=== PATIENT | male | born 1955 | race Caucasian/White ===

== ENCOUNTER 2017-11-08 14:42 | Observation (INO) | payer BC, OTHER ==
[2017-11-08 15:32] LABS: ADD MAN DIFF? NO
[2017-11-08 15:36] LABS: WHITE BLOOD COUNT 7.1 10^3/ul (4.8-10.8)
[2017-11-08 15:36] LABS: BASOPHILS % 0.3 % (0.0-2.0); EOSINOPHILS # 0.3 10^3/ul (0.0-0.5); EOSINOPHILS % 4.8 % (0.0-7.0); HEMATOCRIT 41.6 % (42.0-52.0); HEMOGLOBIN 14.3 g/dl (14.0-18.0); LYMPHOCYTES # 1.4 10^3/ul (0.8-2.9); LYMPHOCYTES % 19.2 % (15.0-51.0); MEAN CORPUSCULAR HEMOGLOBIN 30.2 pg (29.0-33.0); MEAN CORPUSCULAR HGB CONC 34.4 g/dl (32.0-37.0); MEAN CORPUSCULAR VOLUME 87.9 fl (82.0-101.0); MEAN PLATELET VOLUME 10.4 fl (7.4-10.4); MONOCYTE # 0.4 10^3/ul (0.3-0.9); MONOCYTES % 5.1 % (0.0-11.0); NEUTROPHILS % 70.3 % (39.0-77.0); PLATELET COUNT 227 10^3/UL (140-415); RED BLOOD COUNT 4.73 10^6/ul (4.70-6.10); RED CELL DISTRIBUTION WIDTH 13.3 % (11.5-14.5)
[2017-11-08 15:39] LABS: INR 0.93; PROTIME 12.6 Sec (11.9-14.9)
[2017-11-08 15:40] LABS: PARTIAL THROMBOPLASTIN TIME 32.9 Sec (25.0-35.0)
[2017-11-08 15:43] LABS: ALANINE AMINOTRANSFERASE 22 IU/L (13-69); ALBUMIN 4.5 g/dl (3.3-4.9); ALBUMIN/GLOBULIN RATIO 1.36; ALKALINE PHOSPHATASE 51 IU/L (42-121); ANION GAP 21 (8-16); ASPARTATE AMINO TRANSFERASE 15 IU/L (15-46); BILIRUBIN,INDIRECT 0.4 mg/dl (0-1.1); BILIRUBIN,TOTAL 0.4 mg/dl (0.2-1.3); BLOOD UREA NITROGEN 17 mg/dl (7-20); CALCIUM 9.7 mg/dl (8.4-10.2); CARBON DIOXIDE 27 mmol/L (21-31); CHLORIDE 102 mmol/L (97-110); CREATININE 0.58 mg/dl (0.61-1.24); GLUCOSE 228 mg/dl (70-220); POTASSIUM 4.2 mmol/L (3.5-5.1); SODIUM 146 mmol/L (135-144); TOTAL PROTEIN 7.8 g/dl (6.1-8.1)
[2017-11-08] MEDS: morphine 4 MG/ML VIAL IV (15:46)
[2017-11-08] MEDS: NITROGLYCERIN 2% 1 GM OINT PKT TD (15:47)
[2017-11-08] MEDS: ONDANSETRON 4 MG INJ IV ×2 (15:47→17:37)
[2017-11-08] MEDS: ASPIRIN 325 MG TAB PO (15:47)
[2017-11-08 15:55] LABS: TROPONIN-I < 0.012 ng/ml (0.00-0.12)
[2017-11-08] MEDS: HYDROmorphONE 0.5 MG/0.5 ML SYG IV (17:37)
[2017-11-08] MEDS ORDERED: ONDANSETRON 4 MG INJ IV ×2 (18:00→18:30)
[2017-11-08] MEDS ORDERED: ACETAMINOPHEN 325 MG TAB PO ×2 (18:00→18:30)
[2017-11-08] MEDS ORDERED: MAGNESIUM HYDROXIDE 30ML CUP PO (18:30)
[2017-11-08] MEDS ORDERED: NACL 0.9% 3 ML SYG IV (18:30)
[2017-11-08] MEDS ORDERED: NITROGLYCERIN (SL) 0.4 MG TAB SL (18:30)
[2017-11-08] MEDS ORDERED: LORAZEPAM 2 MG INJ IV (18:30)
[2017-11-08] MEDS ORDERED: DOCUSATE SODIUM 100 MG CAP PO (18:30)
[2017-11-08] MEDS ORDERED: GLUCOSE GEL 15 GRAM TUBE PO ×2 (19:00)
[2017-11-08] MEDS ORDERED: DEXTROSE 50% 50 ML SYRINGE IV ×2 (19:00)
[2017-11-08] MEDS ORDERED: GLUCOSE GEL 15 GRAM TUBE BUCCAL (19:00)
[2017-11-08] MEDS ORDERED: GLUCAGON 1 MG INJ IM (19:00)
[2017-11-08] MEDS: SOD CHLORIDE 0.9% 100 ML ×2 (19:43→19:58)
[2017-11-08] MEDS: IOHEXOL 300MG/ML 150 ML BTL ×3 (19:44→19:57)
[2017-11-08 20:19] LABS: CREATINE KINASE 56 IU/L (23-200)
[2017-11-08 20:31] LABS: CK INDEX 1.3
[2017-11-08 20:32] LABS: CK-MB 0.74 ng/ml (0.0-2.4); TROPONIN-I < 0.012 ng/ml (0.00-0.12)
[2017-11-08 20:49] LABS: CHOLESTEROL 192 mg/dl (100-200)
[2017-11-08 20:49] LABS: HDL CHOLESTEROL 38 mg/dl (30-78); LDL CHOLESTEROL,CALCULATED 135 mg/dl; TRIGLYCERIDES 97 mg/dl (0-149)
[2017-11-08 21:21] LABS: THYROID STIMULATING HORMONE 0.494 MIU/L (0.465-4.680)
[2017-11-08] MEDS: ATORVASTATIN 20 MG TAB PO (23:35)
[2017-11-08] MEDS: RANITIDINE 150 MG TAB PO (23:40)
[2017-11-08] MEDS: INSULIN ASPART [NOVOLOG] 3 ML PEN SC (23:40)
[2017-11-08] MEDS: morphine 2 MG INJ IV (23:41)
[2017-11-09 01:01] LABS: CREATINE KINASE 50 IU/L (23-200)
[2017-11-09 01:14] LABS: CK INDEX 1.7; CK-MB 0.84 ng/ml (0.0-2.4); TROPONIN-I < 0.012 ng/ml (0.00-0.12)
[2017-11-09 05:53] LABS: ADD MAN DIFF? NO
[2017-11-09 05:56] LABS: BASOPHILS % 0.2 % (0.0-2.0); EOSINOPHILS # 0.3 10^3/ul (0.0-0.5); EOSINOPHILS % 5.4 % (0.0-7.0); HEMATOCRIT 37.6 % (42.0-52.0); HEMOGLOBIN 12.9 g/dl (14.0-18.0); LYMPHOCYTES # 1.4 10^3/ul (0.8-2.9); LYMPHOCYTES % 22.6 % (15.0-51.0); MEAN CORPUSCULAR HEMOGLOBIN 30.6 pg (29.0-33.0); MEAN CORPUSCULAR HGB CONC 34.3 g/dl (32.0-37.0); MEAN CORPUSCULAR VOLUME 89.3 fl (82.0-101.0); MEAN PLATELET VOLUME 10.3 fl (7.4-10.4); MONOCYTE # 0.4 10^3/ul (0.3-0.9); MONOCYTES % 6.2 % (0.0-11.0); NEUTROPHIL # 4.1 10^3/ul (1.6-7.5); NEUTROPHILS % 65.3 % (39.0-77.0); PLATELET COUNT 226 10^3/UL (140-415); RED BLOOD COUNT 4.21 10^6/ul (4.70-6.10); RED CELL DISTRIBUTION WIDTH 13.6 % (11.5-14.5)
[2017-11-09 05:56] LABS: WHITE BLOOD COUNT 6.3 10^3/ul (4.8-10.8)
[2017-11-09] MEDS: PANTOPRAZOLE (EC) 40 MG TAB PO (06:00)
[2017-11-09 06:53] LABS: ANION GAP 16 (8-16); BLOOD UREA NITROGEN 21 mg/dl (7-20); CALCIUM 9.1 mg/dl (8.4-10.2); CARBON DIOXIDE 31 mmol/L (21-31); CHLORIDE 101 mmol/L (97-110); CREATININE 0.64 mg/dl (0.61-1.24); GLUCOSE 88 mg/dl (70-220); MAGNESIUM 1.4 mg/dl (1.7-2.5); PHOSPHORUS 4.2 mg/dl (2.5-4.9); POTASSIUM 4.1 mmol/L (3.5-5.1); SODIUM 144 mmol/L (135-144)
[2017-11-09] MEDS: SOD CHLORIDE 0.9% 1,000 ML IV (06:57)
[2017-11-09 07:19] LABS: HEMOGLOBIN A1C 8.2 % (0-5.9)
[2017-11-09] MEDS: INSULIN ASPART [NOVOLOG] 3 ML PEN SC ×4 (07:35→20:36)
[2017-11-09] MEDS: AMLODIPINE 2.5 MG TAB PO (08:18)
[2017-11-09] MEDS: LISINOPRIL 20 MG TAB PO (08:18)
[2017-11-09] MEDS: CLOPIDOGREL 75 MG TAB PO (09:28)
[2017-11-09] MEDS: MAGNESIUM SULFATE 3 GM in DEXTROSE 5% 100 ML IVPB (11:18)
[2017-11-09] MEDS: HYDROCODONE/APAP (5/325) TAB PO (11:18)
[2017-11-09] MEDS: ATORVASTATIN 40 MG TAB PO (21:56)
[2017-11-09] MEDS: RANITIDINE 150 MG TAB PO (21:56)
[2017-11-10] MEDS: PANTOPRAZOLE (EC) 40 MG TAB PO (05:12)
[2017-11-10 05:19] LABS: ADD MAN DIFF? NO
[2017-11-10 05:22] LABS: WHITE BLOOD COUNT 7.2 10^3/ul (4.8-10.8)
[2017-11-10 05:22] LABS: BASOPHILS % 0.3 % (0.0-2.0); EOSINOPHILS # 0.4 10^3/ul (0.0-0.5); EOSINOPHILS % 5.7 % (0.0-7.0); HEMATOCRIT 36.4 % (42.0-52.0); HEMOGLOBIN 12.5 g/dl (14.0-18.0); LYMPHOCYTES # 1.5 10^3/ul (0.8-2.9); LYMPHOCYTES % 20.2 % (15.0-51.0); MEAN CORPUSCULAR HEMOGLOBIN 30.3 pg (29.0-33.0); MEAN CORPUSCULAR HGB CONC 34.3 g/dl (32.0-37.0); MEAN CORPUSCULAR VOLUME 88.3 fl (82.0-101.0); MEAN PLATELET VOLUME 10.6 fl (7.4-10.4); MONOCYTE # 0.4 10^3/ul (0.3-0.9); MONOCYTES % 5.8 % (0.0-11.0); NEUTROPHIL # 4.9 10^3/ul (1.6-7.5); NEUTROPHILS % 67.7 % (39.0-77.0); PLATELET COUNT 217 10^3/UL (140-415); RED BLOOD COUNT 4.12 10^6/ul (4.70-6.10); RED CELL DISTRIBUTION WIDTH 13.3 % (11.5-14.5)
[2017-11-10 05:45] LABS: ALBUMIN 4.1 g/dl (3.3-4.9); ANION GAP 17 (8-16); BLOOD UREA NITROGEN 15 mg/dl (7-20); CARBON DIOXIDE 28 mmol/L (21-31); CHLORIDE 102 mmol/L (97-110); CREATININE 0.66 mg/dl (0.61-1.24); GLUCOSE 141 mg/dl (70-220); MAGNESIUM 1.9 mg/dl (1.7-2.5); PHOSPHORUS 4.4 mg/dl (2.5-4.9); POTASSIUM 4.3 mmol/L (3.5-5.1); SODIUM 143 mmol/L (135-144)
[2017-11-10] MEDS: INSULIN ASPART [NOVOLOG] 3 ML PEN SC ×2 (07:35→11:45)
[2017-11-10] MEDS: LISINOPRIL 20 MG TAB PO (08:39)
[2017-11-10] MEDS: ASPIRIN (EC) 81 MG TAB PO (08:39)
[2017-11-10] MEDS: CLOPIDOGREL 75 MG TAB PO (12:08)
== END 2017-11-10 13:00 | disposition home or self-care (01) ==
LOC: E/R 14:42 → MS3 17:55
DX: R07.9 Chest pain, unspecified (principal); R10.9 Unspecified abdominal pain; E11.9 Type 2 diabetes mellitus without complications; I10 Essential (primary) hypertension; I25.10 Atherosclerotic heart disease of native coronary artery without angina pectoris; E78.5 Hyperlipidemia, unspecified; E83.42 Hypomagnesemia; M25.511 Pain in right shoulder; M79.601 Pain in right arm; I25.5 Ischemic cardiomyopathy; I73.9 Peripheral vascular disease, unspecified; I69.351 Hemiplegia and hemiparesis following cerebral infarction affecting right dominant side; I25.2 Old myocardial infarction; Z95.5 Presence of coronary angioplasty implant and graft; Z87.891 Personal history of nicotine dependence; Z79.02 Long term (current) use of antithrombotics/antiplatelets; Z79.84 Long term (current) use of oral hypoglycemic drugs
CPT/HCPCS: 36415; 71045; 73030-RT; 74018; 74177; 80053; 80061; 80069; 82550; 82553; 82962; 83036; 83735; 84443; 84484; 85025; 85610; 85730; 93005; 93306; 96374; 96375; 96376; 99285-25

== ENCOUNTER 2018-06-06 22:24 | Inpatient (IN) | payer BC ==
[2018-06-06 22:52] LABS: ADD MAN DIFF? NO
[2018-06-06 22:54] LABS: WHITE BLOOD COUNT 7.1 10^3/ul (4.8-10.8)
[2018-06-06 22:54] LABS: BASOPHILS % 0.4 % (0.0-2.0); EOSINOPHILS # 0.2 10^3/ul (0.0-0.5); EOSINOPHILS % 3.2 % (0.0-7.0); HEMATOCRIT 36.8 % (42.0-52.0); HEMOGLOBIN 12.6 g/dl (14.0-18.0); LYMPHOCYTES # 1.3 10^3/ul (0.8-2.9); MEAN CORPUSCULAR HEMOGLOBIN 30.1 pg (29.0-33.0); MEAN CORPUSCULAR HGB CONC 34.2 g/dl (32.0-37.0); MEAN PLATELET VOLUME 10.3 fl (7.4-10.4); MONOCYTE # 0.4 10^3/ul (0.3-0.9); MONOCYTES % 5.4 % (0.0-11.0); NEUTROPHIL # 5.2 10^3/ul (1.6-7.5); NEUTROPHILS % 72.7 % (39.0-77.0); PLATELET COUNT 211 10^3/UL (140-415); RED BLOOD COUNT 4.18 10^6/ul (4.70-6.10); RED CELL DISTRIBUTION WIDTH 12.9 % (11.5-14.5)
[2018-06-06 23:00] LABS: ANION GAP 11 (5-13); BLOOD UREA NITROGEN 17 mg/dl (7-20); CALCIUM 9.2 mg/dl (8.4-10.2); CARBON DIOXIDE 25 mmol/L (21-31); CHLORIDE 101 mmol/L (97-110); CREATININE 0.56 mg/dl (0.61-1.24); Estimated GFR > 60 mL/min (>60); GLUCOSE 285 mg/dl (70-220); POTASSIUM 4.4 mmol/L (3.5-5.1); SODIUM 137 mmol/L (135-144)
[2018-06-06 23:11] LABS: TROPONIN-I < 0.012 ng/ml (0.000-0.120)
[2018-06-07] MEDS ORDERED: ONDANSETRON 4 MG INJ IV (00:30)
[2018-06-07] MEDS ORDERED: ACETAMINOPHEN 325 MG TAB PO ×2 (00:30→03:00)
[2018-06-07] MEDS ORDERED: morphine 2 MG INJ IV (03:00)
[2018-06-07] MEDS ORDERED: NITROGLYCERIN (SL) 0.4 MG TAB SL (03:00)
[2018-06-07] MEDS ORDERED: GLUCAGON 1 MG INJ IM (03:30)
[2018-06-07] MEDS ORDERED: DEXTROSE 50% 50 ML SYRINGE IV ×2 (03:30)
[2018-06-07] MEDS ORDERED: GLUCOSE GEL 15 GRAM TUBE BUCCAL (03:30)
[2018-06-07] MEDS ORDERED: GLUCOSE GEL 15 GRAM TUBE PO ×2 (03:30)
[2018-06-07 05:34] LABS: ADD MAN DIFF? NO
[2018-06-07 05:39] LABS: BASOPHILS % 0.5 % (0.0-2.0); EOSINOPHILS # 0.3 10^3/ul (0.0-0.5); EOSINOPHILS % 4.3 % (0.0-7.0); HEMOGLOBIN 12.8 g/dl (14.0-18.0); LYMPHOCYTES # 1.5 10^3/ul (0.8-2.9); LYMPHOCYTES % 25.4 % (15.0-51.0); MEAN CORPUSCULAR HEMOGLOBIN 30.3 pg (29.0-33.0); MEAN CORPUSCULAR HGB CONC 34.6 g/dl (32.0-37.0); MEAN CORPUSCULAR VOLUME 87.7 fl (82.0-101.0); MEAN PLATELET VOLUME 10.1 fl (7.4-10.4); MONOCYTE # 0.4 10^3/ul (0.3-0.9); MONOCYTES % 7.6 % (0.0-11.0); NEUTROPHIL # 3.6 10^3/ul (1.6-7.5); PLATELET COUNT 209 10^3/UL (140-415); RED BLOOD COUNT 4.22 10^6/ul (4.70-6.10); RED CELL DISTRIBUTION WIDTH 12.8 % (11.5-14.5)
[2018-06-07 05:39] LABS: WHITE BLOOD COUNT 5.8 10^3/ul (4.8-10.8)
[2018-06-07 05:59] LABS: ALANINE AMINOTRANSFERASE 23 IU/L (13-69); ALBUMIN 3.9 g/dl (3.3-4.9); ALBUMIN/GLOBULIN RATIO 1.34; ALKALINE PHOSPHATASE 45 IU/L (42-121); ANION GAP 10 (5-13); ASPARTATE AMINO TRANSFERASE 15 IU/L (15-46); BILIRUBIN,INDIRECT 0.4 mg/dl (0-1.1); BILIRUBIN,TOTAL 0.4 mg/dl (0.2-1.3); BLOOD UREA NITROGEN 13 mg/dl (7-20); CALCIUM 9.3 mg/dl (8.4-10.2); CARBON DIOXIDE 28 mmol/L (21-31); CHLORIDE 103 mmol/L (97-110); CREATININE 0.53 mg/dl (0.61-1.24); Estimated GFR > 60 mL/min (>60); GLUCOSE 124 mg/dl (70-220); POTASSIUM 3.7 mmol/L (3.5-5.1); SODIUM 141 mmol/L (135-144); TOTAL PROTEIN 6.8 g/dl (6.1-8.1)
[2018-06-07 06:04] LABS: HEMOGLOBIN A1C 9.6 % (0-5.9)
[2018-06-07 06:07] LABS: TROPONIN-I < 0.012 ng/ml (0.000-0.120)
[2018-06-07 06:16] LABS: CREATINE KINASE 61 IU/L (23-200)
[2018-06-07 06:27] LABS: CK INDEX 1.8; CK-MB 1.11 ng/ml (0.0-2.4); TROPONIN-I < 0.012 ng/ml (0.000-0.120)
[2018-06-07] MEDS: glipiZIDE 5 MG TAB PO (07:59)
[2018-06-07] MEDS: metFORMIN 500 MG TAB PO ×2 (08:00→17:16)
[2018-06-07] MEDS: INSULIN ASPART [NOVOLOG] 3 ML PEN SC ×4 (08:00→20:57)
[2018-06-07] MEDS: CLOPIDOGREL 75 MG TAB PO (09:45)
[2018-06-07] MEDS: GABAPENTIN 300 MG CAP PO ×3 (09:45→20:59)
[2018-06-07] MEDS: AMLODIPINE 2.5 MG TAB PO (09:45)
[2018-06-07] MEDS: LISINOPRIL 20 MG TAB PO (09:46)
[2018-06-07] MEDS: ENOXAPARIN 40 MG/0.4 ML SYG SC (09:53)
[2018-06-07] MEDS: SENNA TAB PO ×2 (10:23→20:59)
[2018-06-07 11:06] LABS: CREATINE KINASE 55 IU/L (23-200)
[2018-06-07 11:11] LABS: CK INDEX 1.7; CK-MB 0.95 ng/ml (0.0-2.4); TROPONIN-I < 0.012 ng/ml (0.000-0.120)
[2018-06-07] MEDS: ISOSORBIDE DINITRATE 20 MG TAB PO ×2 (13:00→21:00)
[2018-06-07] MEDS: ATORVASTATIN 40 MG TAB PO (20:59)
[2018-06-07] MEDS: RANITIDINE 150 MG TAB PO (20:59)
[2018-06-07] MEDS ORDERED: GABAPENTIN 300 MG CAP PO (21:00)
[2018-06-07] MEDS ORDERED: RANITIDINE 150 MG TAB PO (21:00)
[2018-06-07] MEDS ORDERED: ATORVASTATIN 40 MG TAB PO (21:00)
[2018-06-08] MEDS: ACCU-CHEK XX (02:46)
[2018-06-08 06:40] LABS: TROPONIN-I < 0.012 ng/ml (0.000-0.120)
[2018-06-08 06:48] LABS: CHOL/HDL RATIO 8.3 RATIO; HDL CHOLESTEROL 26 mg/dl (30-78); LDL CHOLESTEROL,CALCULATED 158 mg/dl; TRIGLYCERIDES 164 mg/dl (0-149)
[2018-06-08 06:48] LABS: CHOLESTEROL 217 mg/dl (100-200)
[2018-06-08] MEDS: INSULIN ASPART [NOVOLOG] 3 ML PEN SC ×3 (08:00→17:38)
[2018-06-08] MEDS: metFORMIN 500 MG TAB PO ×2 (08:00→17:35)
[2018-06-08] MEDS ORDERED: AMLODIPINE 2.5 MG TAB PO (09:00)
[2018-06-08] MEDS: SENNA TAB PO (09:00)
[2018-06-08] MEDS ORDERED: CLOPIDOGREL 75 MG TAB PO (09:00)
[2018-06-08] MEDS ORDERED: LISINOPRIL 20 MG TAB PO (09:00)
[2018-06-08] MEDS: CLOPIDOGREL 75 MG TAB PO (09:11)
[2018-06-08] MEDS: GABAPENTIN 300 MG CAP PO ×2 (09:11→12:50)
[2018-06-08] MEDS: LISINOPRIL 20 MG TAB PO (09:11)
[2018-06-08] MEDS: ISOSORBIDE DINITRATE 20 MG TAB PO ×2 (09:11→12:49)
[2018-06-08] MEDS: AMLODIPINE 2.5 MG TAB PO (09:12)
[2018-06-08] MEDS: ENOXAPARIN 40 MG/0.4 ML SYG SC (09:14)
[2018-06-08] MEDS: REGADENOSON 0.4 MG/5 ML SYG (13:40)
[2018-06-13] MEDS ORDERED: ERGOCALCIFEROL 50,000 UNIT CAP PO (09:00)
== END 2018-06-08 20:40 | disposition left against medical advice (07) | DRG 313 ==
LOC: E/R 22:24 → 6WM 06-07 00:27
DX: R07.9 Chest pain, unspecified (principal); I42.9 Cardiomyopathy, unspecified; I10 Essential (primary) hypertension; I25.2 Old myocardial infarction; D64.9 Anemia, unspecified; E11.9 Type 2 diabetes mellitus without complications; I25.10 Atherosclerotic heart disease of native coronary artery without angina pectoris; E78.5 Hyperlipidemia, unspecified; Z95.5 Presence of coronary angioplasty implant and graft; Z79.84 Long term (current) use of oral hypoglycemic drugs; Z79.02 Long term (current) use of antithrombotics/antiplatelets; Z72.0 Tobacco use
CPT/HCPCS: 36415; 71045; 78452; 80048; 80053; 80061; 82550; 82553; 82962; 83036; 84484; 85025; 93005; 93017; 93306; 99285-25

== ENCOUNTER 2018-07-13 07:22 | Day surgery (SDC) | payer BC ==
[~2018-07-13 07:22] MED LIST: CEFAZOLIN 2 GM/50 ML (PMX) 50 ML IVPB; DEXAMETHASONE 4 MG/ML 1 ML INJ; FENTAnyl 50 MCG/ML VIAL; GLYCOPYRROLATE 0.4 MG INJ; LABETALOL HCL 20MG INJ; LIDOCAINE 100 MG SYRINGE; MIDAZOLAM 1 MG/ML 2 ML INJ; NEOSTIGMINE 3 MG/3 ML SYRINGE; ONDANSETRON 4 MG INJ; PROPOFOL 20 ML; ROCURONIUM 50 MG INJ; SOD CHLORIDE 0.9% 1,000 ML IV
[2018-07-13] MEDS ORDERED: SUCCINYLCHOLINE CHLORIDE 100 MG/5 ML SYG IV (08:12)
[2018-07-13] MEDS ORDERED: BUPIVACAINE 0.25%/EPI (SDV) 10 ML INJ (08:40)
[2018-07-13] MEDS ORDERED: LIDOCAINE 1% (STERILE-PAK) 30 ML INJ (08:40)
[2018-07-13] MEDS ORDERED: FLUMAZENIL 0.5 MG INJ (08:52)
[2018-07-13] MEDS: LIDOCAINE 1% (MPF) 30 ML INJ INJ (09:14)
[2018-07-13] MEDS: BUPIVACAINE 0.25% (MPF) 10 ML 10 ML VIAL INJ ×3 (09:14)
[2018-07-13] MEDS ORDERED: HYDROCODONE/APAP (5/325) TAB PO ×2 (09:30)
[2018-07-13] MEDS ORDERED: IBUPROFEN 600 MG TAB PO (09:30)
[2018-07-13] MEDS: HYDROmorphONE 0.5 MG/0.5 ML SYG IV (10:09)
[2018-07-13] MEDS: FENTAnyl 50 MCG/ML VIAL IV (10:09)
== END 2018-07-13 14:40 | disposition home or self-care (01) ==
LOC: SDS 07:22
DX: L05.91 Pilonidal cyst without abscess (principal); E11.9 Type 2 diabetes mellitus without complications; I11.0 Hypertensive heart disease with heart failure; I50.9 Heart failure, unspecified; I25.10 Atherosclerotic heart disease of native coronary artery without angina pectoris; Z86.73 Personal history of transient ischemic attack (TIA), and cerebral infarction without residual deficits
CPT/HCPCS: 11772; 82962; 88304

== ENCOUNTER 2019-03-10 07:49 | Emergency (ER) | payer BC ==
[2019-03-10 08:30] LABS: ADD MAN DIFF? NO
[2019-03-10 08:32] LABS: BASOPHILS % 0.5 % (0.0-2.0); EOSINOPHILS # 0.3 10^3/ul (0.0-0.5); EOSINOPHILS % 3.9 % (0.0-7.0); HEMATOCRIT 40.9 % (42.0-52.0); HEMOGLOBIN 13.8 g/dl (14.0-18.0); LYMPHOCYTES # 2.3 10^3/ul (0.8-2.9); LYMPHOCYTES % 34.8 % (15.0-51.0); MEAN CORPUSCULAR HEMOGLOBIN 29.6 pg (29.0-33.0); MEAN CORPUSCULAR HGB CONC 33.7 g/dl (32.0-37.0); MEAN CORPUSCULAR VOLUME 87.6 fl (82.0-101.0); MEAN PLATELET VOLUME 10.6 fl (7.4-10.4); MONOCYTE # 0.5 10^3/ul (0.3-0.9); MONOCYTES % 7.1 % (0.0-11.0); NEUTROPHIL # 3.5 10^3/ul (1.6-7.5); NEUTROPHILS % 53.4 % (39.0-77.0); PLATELET COUNT 221 10^3/UL (140-415); RED BLOOD COUNT 4.67 10^6/ul (4.70-6.10); RED CELL DISTRIBUTION WIDTH 12.9 % (11.5-14.5)
[2019-03-10 08:32] LABS: WHITE BLOOD COUNT 6.5 10^3/ul (4.8-10.8)
[2019-03-10 08:37] LABS: ADD UMIC YES; UR ASCORBIC ACID NEGATIVE (NEGATIVE); UR BACTERIA FEW /HPF (NONE SEEN); UR BILIRUBIN (Dip) NEGATIVE (NEGATIVE); UR BLOOD (Dip) NEGATIVE (NEGATIVE); UR CLARITY CLEAR (CLEAR); UR COLOR YELLOW (YELLOW); UR GLUCOSE (Dip) 3+ mg/dL (NEGATIVE); UR KETONES (Dip) NEGATIVE (NEGATIVE); UR LEUKOCYTE ESTERASE (Dip) NEGATIVE Leu/ul (NEGATIVE); UR NITRITE (Dip) NEGATIVE (NEGATIVE); UR RBC 1 /HPF (0-5); UR SPECIFIC GRAVITY (Dip) 1.012 (1.003-1.030); UR TOTAL PROTEIN (Dip) 1+ mg/dl (NEGATIVE); UR UROBILINOGEN (Dip) NEGATIVE (NEGATIVE); UR WBC 2 /HPF (0-5)
[2019-03-10] MEDS: KETOROLAC 15 MG INJ IV (08:39)
[2019-03-10] MEDS: SOD CHLORIDE 0.9% 1,000 ML IV (08:39)
[2019-03-10] MEDS: ONDANSETRON 4 MG INJ IV (08:39)
[2019-03-10 08:51] LABS: ALANINE AMINOTRANSFERASE 27 IU/L (13-69); ALBUMIN 5.4 g/dl (3.3-4.9); ALBUMIN/GLOBULIN RATIO 1.63; ALKALINE PHOSPHATASE 55 IU/L (42-121); ANION GAP 16 (5-13); ASPARTATE AMINO TRANSFERASE 21 IU/L (15-46); BILIRUBIN,INDIRECT 0.5 mg/dl (0-1.1); BILIRUBIN,TOTAL 0.5 mg/dl (0.2-1.3); BLOOD UREA NITROGEN 21 mg/dl (7-20); CALCIUM 10.5 mg/dl (8.4-10.2); CARBON DIOXIDE 25 mmol/L (21-31); CHLORIDE 100 mmol/L (97-110); Estimated GFR > 60 mL/min (>60); GLUCOSE 320 mg/dl (70-220); LIPASE 67 U/L (23-300); POTASSIUM 4.8 mmol/L (3.5-5.1); SODIUM 141 mmol/L (135-144); TOTAL PROTEIN 8.7 g/dl (6.1-8.1)
[2019-03-10 09:02] LABS: TROPONIN-I 0.014 ng/ml (0.000-0.120)
== END 2019-03-10 10:00 | disposition home or self-care (01) ==
LOC: E/R 07:49
DX: I10 Essential (primary) hypertension (principal); E86.0 Dehydration; E11.9 Type 2 diabetes mellitus without complications; I25.10 Atherosclerotic heart disease of native coronary artery without angina pectoris; Z79.01 Long term (current) use of anticoagulants; Z79.82 Long term (current) use of aspirin; Z86.73 Personal history of transient ischemic attack (TIA), and cerebral infarction without residual deficits; Z79.84 Long term (current) use of oral hypoglycemic drugs
CPT/HCPCS: 36415; 71045; 80053; 81001; 83690; 84484; 85025; 87086; 93005; 96361; 96374; 96375; 99285-25

== ENCOUNTER 2019-03-11 01:51 | Inpatient (IN) | payer BC ==
[2019-03-11] MEDS: ONDANSETRON 4 MG INJ IV ×3 (02:17→07:20)
[2019-03-11] MEDS: HYDROmorphONE 1 MG/ML SYG IV (02:17)
[2019-03-11] MEDS: SOD CHLORIDE 0.9% 1,000 ML IV ×3 (02:18→18:58)
[2019-03-11 02:58] LABS: ADD MAN DIFF? NO
[2019-03-11 03:00] LABS: WHITE BLOOD COUNT 11.3 10^3/ul (4.8-10.8)
[2019-03-11 03:00] LABS: BASOPHILS % 0.2 % (0.0-2.0); EOSINOPHILS # 0.2 10^3/ul (0.0-0.5); EOSINOPHILS % 2.1 % (0.0-7.0); LYMPHOCYTES # 1.2 10^3/ul (0.8-2.9); MEAN CORPUSCULAR HEMOGLOBIN 29.8 pg (29.0-33.0); MEAN CORPUSCULAR HGB CONC 34.1 g/dl (32.0-37.0); MEAN CORPUSCULAR VOLUME 87.2 fl (82.0-101.0); MEAN PLATELET VOLUME 10.6 fl (7.4-10.4); MONOCYTE # 0.6 10^3/ul (0.3-0.9); MONOCYTES % 5.5 % (0.0-11.0); NEUTROPHIL # 9.1 10^3/ul (1.6-7.5); NEUTROPHILS % 80.8 % (39.0-77.0); PLATELET COUNT 237 10^3/UL (140-415)
[2019-03-11 03:06] LABS: ALANINE AMINOTRANSFERASE 33 IU/L (13-69); ALBUMIN 4.7 g/dl (3.3-4.9); ALBUMIN/GLOBULIN RATIO 1.62; ALKALINE PHOSPHATASE 51 IU/L (42-121); ANION GAP 12 (5-13); ASPARTATE AMINO TRANSFERASE 46 IU/L (15-46); BILIRUBIN,INDIRECT 0.8 mg/dl (0-1.1); BILIRUBIN,TOTAL 0.8 mg/dl (0.2-1.3); BLOOD UREA NITROGEN 19 mg/dl (7-20); CALCIUM 9.8 mg/dl (8.4-10.2); CARBON DIOXIDE 25 mmol/L (21-31); CHLORIDE 101 mmol/L (97-110); CREATININE 0.74 mg/dl (0.61-1.24); Estimated GFR > 60 mL/min (>60); LIPASE 55 U/L (23-300); POTASSIUM 4.6 mmol/L (3.5-5.1); SODIUM 138 mmol/L (135-144); TOTAL PROTEIN 7.6 g/dl (6.1-8.1)
[2019-03-11 03:24] LABS: GLUCOSE 222 mg/dl (70-220)
[2019-03-11 05:09] LABS: URINE BLOOD (Dip) POC Trace-intact (NEGATIVE); URINE KETONES (Dip) POC Trace (NEGATIVE); URINE LEUKOCYTE EST (Dip) POC Negative (NEGATIVE); URINE NITRITE (Dip) POC Negative (NEGATIVE); URINE TOTAL PROTEIN POC 1+ (NEGATIVE)
[2019-03-11 05:24] LABS: ADD UMIC YES; UR ASCORBIC ACID NEGATIVE (NEGATIVE); UR BILIRUBIN (Dip) NEGATIVE (NEGATIVE); UR BLOOD (Dip) 1+ mg/dL (NEGATIVE); UR CLARITY CLEAR (CLEAR); UR COLOR STRAW (YELLOW); UR GLUCOSE (Dip) 1+ mg/dL (NEGATIVE); UR KETONES (Dip) TRACE mg/dL (NEGATIVE); UR LEUKOCYTE ESTERASE (Dip) NEGATIVE Leu/ul (NEGATIVE); UR NITRITE (Dip) NEGATIVE (NEGATIVE); UR RBC 3 /HPF (0-5); UR SPECIFIC GRAVITY (Dip) 1.033 (1.003-1.030); UR TOTAL PROTEIN (Dip) NEGATIVE (NEGATIVE); UR UROBILINOGEN (Dip) NEGATIVE (NEGATIVE); UR WBC 2 /HPF (0-5)
[2019-03-11] MEDS: CEFTRIAXONE 1 GM/50 ML (PMX) 50 ML IVPB (05:58)
[2019-03-11] MEDS ORDERED: ACETAMINOPHEN 325 MG TAB PO (06:00)
[2019-03-11] MEDS: IOHEXOL 300MG/ML 150 ML BTL (06:19)
[2019-03-11] MEDS: SOD CHLORIDE 0.9% 100 ML (06:19)
[2019-03-11] MEDS: morphine 2 MG INJ IV ×4 (07:21→23:27)
[2019-03-11] MEDS ORDERED: GLUCOSE GEL 15 GRAM TUBE PO ×2 (10:00)
[2019-03-11] MEDS ORDERED: DEXTROSE 50% 50 ML SYRINGE IV ×2 (10:00)
[2019-03-11] MEDS ORDERED: GLUCAGON 1 MG INJ IM (10:00)
[2019-03-11] MEDS ORDERED: GLUCOSE GEL 15 GRAM TUBE BUCCAL (10:00)
[2019-03-11] MEDS: INSULIN ASPART [NOVOLOG] 3 ML PEN SC ×3 (13:51→21:00)
[2019-03-11] MEDS: ASPIRIN (EC) 81 MG TAB PO (13:58)
[2019-03-11] MEDS: HYDROCODONE/APAP (5/325) TAB PO ×2 (13:59→20:47)
[2019-03-11] MEDS: CLOPIDOGREL 75 MG TAB PO (14:01)
[2019-03-11] MEDS: metFORMIN 500 MG TAB PO (18:16)
[2019-03-12] MEDS: ACCU-CHEK XX (02:00)
[2019-03-12] MEDS: HYDROCODONE/APAP (5/325) TAB PO ×3 (02:23→17:12)
[2019-03-12 05:02] LABS: ADD MAN DIFF? NO
[2019-03-12 05:10] LABS: WHITE BLOOD COUNT 10.5 10^3/ul (4.8-10.8)
[2019-03-12 05:10] LABS: BASOPHILS % 0.3 % (0.0-2.0); EOSINOPHILS # 0.2 10^3/ul (0.0-0.5); EOSINOPHILS % 1.8 % (0.0-7.0); HEMOGLOBIN 11.7 g/dl (14.0-18.0); LYMPHOCYTES # 1.3 10^3/ul (0.8-2.9); LYMPHOCYTES % 12.2 % (15.0-51.0); MEAN CORPUSCULAR HEMOGLOBIN 29.8 pg (29.0-33.0); MEAN CORPUSCULAR HGB CONC 33.4 g/dl (32.0-37.0); MEAN CORPUSCULAR VOLUME 89.3 fl (82.0-101.0); MEAN PLATELET VOLUME 10.7 fl (7.4-10.4); MONOCYTE # 0.7 10^3/ul (0.3-0.9); MONOCYTES % 7.1 % (0.0-11.0); NEUTROPHIL # 8.2 10^3/ul (1.6-7.5); PLATELET COUNT 186 10^3/UL (140-415); RED BLOOD COUNT 3.92 10^6/ul (4.70-6.10); RED CELL DISTRIBUTION WIDTH 13.2 % (11.5-14.5)
[2019-03-12] MEDS: CEFTRIAXONE 1 GM/50 ML (PMX) 50 ML IVPB (05:27)
[2019-03-12] MEDS: morphine 2 MG INJ IV ×5 (05:30→22:04)
[2019-03-12 05:35] LABS: ANION GAP 4 (5-13); BLOOD UREA NITROGEN 14 mg/dl (7-20); CALCIUM 8.6 mg/dl (8.4-10.2); CARBON DIOXIDE 29 mmol/L (21-31); CHLORIDE 102 mmol/L (97-110); Estimated GFR > 60 mL/min (>60); GLUCOSE 209 mg/dl (70-220); POTASSIUM 4.2 mmol/L (3.5-5.1); SODIUM 135 mmol/L (135-144)
[2019-03-12] MEDS: SOD CHLORIDE 0.9% 1,000 ML IV ×2 (07:30→12:53)
[2019-03-12] MEDS: CLOPIDOGREL 75 MG TAB PO (08:27)
[2019-03-12] MEDS: ASPIRIN (EC) 81 MG TAB PO (08:27)
[2019-03-12] MEDS: LISINOPRIL 20 MG TAB PO (08:28)
[2019-03-12] MEDS: INSULIN ASPART [NOVOLOG] 3 ML PEN SC ×4 (08:29→21:00)
[2019-03-12] MEDS: glipiZIDE 5 MG TAB PO (08:34)
[2019-03-12] MEDS: metFORMIN 500 MG TAB PO ×2 (08:34→17:55)
[2019-03-13] MEDS: ACCU-CHEK XX (02:00)
[2019-03-13] MEDS: morphine 2 MG INJ IV ×3 (02:08→10:08)
[2019-03-13] MEDS: ACETAMINOPHEN 325 MG TAB PO ×2 (02:10→08:51)
[2019-03-13 02:51] LABS: ADD MAN DIFF? NO
[2019-03-13 02:55] LABS: WHITE BLOOD COUNT 12.9 10^3/ul (4.8-10.8)
[2019-03-13 02:55] LABS: BASOPHILS % 0.2 % (0.0-2.0); EOSINOPHILS # 0.1 10^3/ul (0.0-0.5); EOSINOPHILS % 0.5 % (0.0-7.0); HEMATOCRIT 35.1 % (42.0-52.0); HEMOGLOBIN 11.6 g/dl (14.0-18.0); LYMPHOCYTES % 7.8 % (15.0-51.0); MEAN CORPUSCULAR HEMOGLOBIN 29.9 pg (29.0-33.0); MEAN CORPUSCULAR VOLUME 90.5 fl (82.0-101.0); MEAN PLATELET VOLUME 10.3 fl (7.4-10.4); MONOCYTE # 0.8 10^3/ul (0.3-0.9); MONOCYTES % 6.3 % (0.0-11.0); NEUTROPHIL # 10.9 10^3/ul (1.6-7.5); NEUTROPHILS % 84.7 % (39.0-77.0); PLATELET COUNT 189 10^3/UL (140-415); RED BLOOD COUNT 3.88 10^6/ul (4.70-6.10); RED CELL DISTRIBUTION WIDTH 13.2 % (11.5-14.5)
[2019-03-13 03:10] LABS: ANION GAP 9 (5-13); BLOOD UREA NITROGEN 20 mg/dl (7-20); CALCIUM 8.6 mg/dl (8.4-10.2); CARBON DIOXIDE 26 mmol/L (21-31); CHLORIDE 102 mmol/L (97-110); CREATININE 0.91 mg/dl (0.61-1.24); Estimated GFR > 60 mL/min (>60); GLUCOSE 137 mg/dl (70-220); POTASSIUM 4.3 mmol/L (3.5-5.1); SODIUM 137 mmol/L (135-144)
[2019-03-13] MEDS: SOD CHLORIDE 0.9% 1,000 ML IV ×2 (05:39→20:46)
[2019-03-13] MEDS: CEFTRIAXONE 1 GM/50 ML (PMX) 50 ML IVPB (05:40)
[2019-03-13 06:23] LABS: ADD UMIC YES; UR ASCORBIC ACID NEGATIVE (NEGATIVE); UR BILIRUBIN (Dip) NEGATIVE (NEGATIVE); UR BLOOD (Dip) NEGATIVE (NEGATIVE); UR CLARITY CLEAR (CLEAR); UR COLOR AMBER (YELLOW); UR GLUCOSE (Dip) 1+ mg/dL (NEGATIVE); UR KETONES (Dip) TRACE mg/dL (NEGATIVE); UR LEUKOCYTE ESTERASE (Dip) NEGATIVE Leu/ul (NEGATIVE); UR MUCUS FEW /HPF (NONE SEEN); UR NITRITE (Dip) NEGATIVE (NEGATIVE); UR RBC 1 /HPF (0-5); UR SPECIFIC GRAVITY (Dip) 1.023 (1.003-1.030); UR SQUAMOUS EPITHELIAL CELL FEW /HPF (FEW); UR TOTAL PROTEIN (Dip) 1+ mg/dl (NEGATIVE); UR UROBILINOGEN (Dip) NEGATIVE (NEGATIVE); UR WBC 2 /HPF (0-5)
[2019-03-13] MEDS: HYDROCODONE/APAP (5/325) TAB PO ×3 (06:48→19:38)
[2019-03-13] MEDS: INSULIN ASPART [NOVOLOG] 3 ML PEN SC ×4 (07:50→20:49)
[2019-03-13] MEDS: CLOPIDOGREL 75 MG TAB PO (08:50)
[2019-03-13] MEDS: glipiZIDE 5 MG TAB PO (08:51)
[2019-03-13] MEDS: ASPIRIN (EC) 81 MG TAB PO (08:51)
[2019-03-13] MEDS: LISINOPRIL 20 MG TAB PO (08:52)
[2019-03-13] MEDS: metFORMIN 500 MG TAB PO ×2 (08:58→18:03)
[2019-03-13] MEDS: BARIUM SULF 2% 450 ML BTL (BERRY SMOOTHIE) PO (12:36)
[2019-03-13] MEDS: SOD CHLORIDE 0.9% 100 ML (13:45)
[2019-03-13] MEDS: IOHEXOL 300MG/ML 150 ML BTL (13:46)
[2019-03-14] MEDS: morphine 2 MG INJ IV ×5 (01:39→21:16)
[2019-03-14] MEDS: ACCU-CHEK XX ×2 (01:49→20:23)
[2019-03-14] MEDS: CEFTRIAXONE 1 GM/50 ML (PMX) 50 ML IVPB (04:57)
[2019-03-14] MEDS: INSULIN ASPART [NOVOLOG] 3 ML PEN SC ×4 (07:50→20:22)
[2019-03-14] MEDS: ASPIRIN (EC) 81 MG TAB PO (08:37)
[2019-03-14] MEDS: CLOPIDOGREL 75 MG TAB PO (08:38)
[2019-03-14] MEDS: LISINOPRIL 20 MG TAB PO (08:38)
[2019-03-14] MEDS: metFORMIN 500 MG TAB PO ×3 (08:38→17:55)
[2019-03-14] MEDS: glipiZIDE 5 MG TAB PO (08:38)
[2019-03-14] MEDS: ACETAMINOPHEN 325 MG TAB PO (08:40)
[2019-03-14] MEDS: SOD CHLORIDE 0.9% 1,000 ML IV ×2 (09:50→21:57)
[2019-03-14] MEDS ORDERED: DOCUSATE SODIUM 100 MG CAP PO (16:47)
[2019-03-14] MEDS: DOCUSATE SODIUM 100 MG CAP PO (16:49)
[2019-03-14] MEDS: ONDANSETRON 4 MG INJ IV (21:14)
[2019-03-15] MEDS: morphine 2 MG INJ IV ×2 (01:14→06:18)
[2019-03-15 04:59] LABS: ADD MAN DIFF? NO
[2019-03-15 05:03] LABS: BASOPHILS % 0.1 % (0.0-2.0); EOSINOPHILS # 0.1 10^3/ul (0.0-0.5); HEMATOCRIT 32.4 % (42.0-52.0); HEMOGLOBIN 10.6 g/dl (14.0-18.0); LYMPHOCYTES # 1.4 10^3/ul (0.8-2.9); LYMPHOCYTES % 13.6 % (15.0-51.0); MEAN CORPUSCULAR HEMOGLOBIN 29.9 pg (29.0-33.0); MEAN CORPUSCULAR HGB CONC 32.7 g/dl (32.0-37.0); MEAN CORPUSCULAR VOLUME 91.3 fl (82.0-101.0); MEAN PLATELET VOLUME 10.2 fl (7.4-10.4); MONOCYTE # 0.8 10^3/ul (0.3-0.9); MONOCYTES % 7.7 % (0.0-11.0); NEUTROPHIL # 8.1 10^3/ul (1.6-7.5); NEUTROPHILS % 77.1 % (39.0-77.0); PLATELET COUNT 218 10^3/UL (140-415); RED BLOOD COUNT 3.55 10^6/ul (4.70-6.10); RED CELL DISTRIBUTION WIDTH 12.9 % (11.5-14.5)
[2019-03-15 05:03] LABS: WHITE BLOOD COUNT 10.6 10^3/ul (4.8-10.8)
[2019-03-15] MEDS: CEFTRIAXONE 1 GM/50 ML (PMX) 50 ML IVPB (05:21)
[2019-03-15 05:24] LABS: ANION GAP 7 (5-13); BLOOD UREA NITROGEN 14 mg/dl (7-20); CARBON DIOXIDE 26 mmol/L (21-31); CHLORIDE 104 mmol/L (97-110); CREATININE 0.64 mg/dl (0.61-1.24); Estimated GFR > 60 mL/min (>60); GLUCOSE 86 mg/dl (70-220); POTASSIUM 4.4 mmol/L (3.5-5.1); SODIUM 137 mmol/L (135-144)
[2019-03-15] MEDS: ASPIRIN (EC) 81 MG TAB PO (08:37)
[2019-03-15] MEDS: DOCUSATE SODIUM 100 MG CAP PO (08:37)
[2019-03-15] MEDS: HYDROCODONE/APAP (5/325) TAB PO (08:39)
[2019-03-15] MEDS: CLOPIDOGREL 75 MG TAB PO (08:42)
[2019-03-15] MEDS: LISINOPRIL 20 MG TAB PO (08:42)
[2019-03-15] MEDS: metFORMIN 500 MG TAB PO (10:54)
[2019-03-15] MEDS: glipiZIDE 5 MG TAB PO (10:54)
[2019-03-15] MEDS: INSULIN ASPART [NOVOLOG] 3 ML PEN SC ×2 (10:55→11:40)
[2019-03-15] MEDS: SOD CHLORIDE 0.9% 1,000 ML IV (11:51)
== END 2019-03-15 16:41 | disposition home or self-care (01) | DRG 690 ==
LOC: E/R 01:51 → MS1 05:36
DX: N12 Tubulo-interstitial nephritis, not specified as acute or chronic (principal); E11.9 Type 2 diabetes mellitus without complications; I10 Essential (primary) hypertension; Z79.84 Long term (current) use of oral hypoglycemic drugs; Z87.891 Personal history of nicotine dependence
CPT/HCPCS: 36415; 74177; 76705; 80048; 80053; 81001; 81003; 82962; 83605; 83690; 85025; 87040-91; 87086; 96361; 96374; 96375; 97161; 99285-25